=== PATIENT | female | born 1975 | race Caucasian/White ===

== ENCOUNTER → 2017-05-25 | Outpatient (CLI) | payer BC | LOC: GMAL 11:37 | PROVIDERS: ATTEND Family Medicine | DX: Z00.00 Encounter for general adult medical examination without abnormal findings (principal) ==

== ENCOUNTER → 2017-11-22 | Outpatient (CLI) | payer BC | LOC: GMAL 11:15 | PROVIDERS: ATTEND Family Medicine | DX: E55.9 Vitamin D deficiency, unspecified (principal); E53.9 Vitamin B deficiency, unspecified ==

== ENCOUNTER → 2019-06-22 | Outpatient (CLI) | payer BC | LOC: GMAL 10:45 | PROVIDERS: ATTEND Family Medicine | DX: R53.83 Other fatigue (principal); I10 Essential (primary) hypertension ==